=== PATIENT | male | born 1960 | race Caucasian/White ===

== ENCOUNTER → 2020-01-05 | Outpatient (CLI) | payer BC ==
[~2020-01-05] MED LIST: CEPHALEXIN500 M1 PO; LISINOPRIL HCTZ1 TA1 PO; LISINOPRIL10 M1 PO; LISINOPRIL10 MG PO; LISINOPRIL2.5 MG PO; LOPRESSOR25 MG PO; PROTONIX40 MG PO
== END | disposition home or self-care (01) ==
LOC: COVID19 13:37
PROVIDERS: ATTEND Family Medicine
DX: U07.1 COVID-19 (principal)

== ENCOUNTER → 2021-05-26 | Day surgery (SDC) | payer BC ==
[~2021-05-26] VITALS: Ht 177.8 cm; Wt 70.3 kg
[~2021-05-26] MED LIST changes: +LISINOPRIL5 MG PO; +MOBIC15 MG PO; +PROPRANOLOL HCL60 M1 PO
[2021-05-26 07:53] VITALS: BP 163/91
[2021-05-26 08:16] VITALS: BP 141/76
[2021-05-26 08:30] VITALS: BP 135/79
[2021-05-26 08:45] VITALS: BP 134/82
== END | disposition home or self-care (01) ==
LOC: SDC 05-23 10:15
PROVIDERS: ATTEND Surgery
DX: Z12.11 Encounter for screening for malignant neoplasm of colon (principal); K57.30 Diverticulosis of large intestine without perforation or abscess without bleeding; K21.9 Gastro-esophageal reflux disease without esophagitis; I10 Essential (primary) hypertension; M19.90 Unspecified osteoarthritis, unspecified site; Z88.5 Allergy status to narcotic agent; E78.00 Pure hypercholesterolemia, unspecified; Z79.899 Other long term (current) drug therapy

== ENCOUNTER → 2021-11-25 | Outpatient (CLI) | payer BC | LOC: RAD 16:25 | PROVIDERS: ATTEND Family Medicine | DX: M17.0 Bilateral primary osteoarthritis of knee (principal) ==

== ENCOUNTER → 2022-06-27 | Outpatient (CLI) | payer BC | END | disposition home or self-care (01) | LOC: CT 00:16 | PROVIDERS: ATTEND Orthopaedic Surgery | DX: M17.0 Bilateral primary osteoarthritis of knee (principal); Z96.653 Presence of artificial knee joint, bilateral ==

== ENCOUNTER 2022-08-22 00:36 | Inpatient (IN) | payer BC ==
[2022-08-18 13:30] VITALS: BP 175/96
[2022-08-18 14:18] LABS: BASO # 0.1 10*3/uL (0.0-0.1); BASO % 0.8 % (0.0-1.0); EOS # 0.1 10*3/uL (0.0-0.4); EOS % 2.1 % (1.0-4.0); HEMATOCRIT 41.5 % (42.0-52.0); LYMPH # 1.1 10*3/uL (1.3-4.4); LYMPH % 18.2 % (27.0-41.0); MEAN CELL VOLUME 94.7 fl (80.0-94.0); MEAN CORPUSCULAR HGB 33.6 pg (27.0-31.0); MEAN CORPUSCULAR HGB CONC 35.4 g/dl (33.0-37.0); MEAN PLATELET VOLUME 9.6 fl (9.6-12.3); MONO # 0.6 10*3/uL (0.1-1.0); NEUT # 4.2 10*3/uL (2.3-7.9); NEUT % 68.4 % (47.0-73.0); PLATELET COUNT AUTOMATED 180 10*3/uL (130-400); RED BLOOD COUNT 4.38 10*6/uL (4.50-5.90); RED CELL DISTRI WIDTH 11.9 % (0-14.5); WHITE BLOOD COUNT 6.1 10*3/uL (4.8-10.8)
[2022-08-18 14:18] LABS: BILIRUBIN Negative (Negative); BLOOD Negative (Negative); CLARITY Clear (Clear); COLOR Yellow (Yellow); GLUCOSE Negative (Negative); KETONE Trace (Negative); LEUKO ESTERASE Negative (Negative); NITRITE Negative (Negative); PH 5.5 (4.5-8.0); SPECIFIC GRAVITY 1.015 (1.001-1.030)
[2022-08-18 14:28] LABS: BACTERIA TRACE; RBC 0-2 rbc/hpf (0-2); WBC 0-2 wbc/hpf (0-5)
[2022-08-18 14:49] LABS: ALKALINE PHOSPHATASE 76 U/L (46-116); BUN 9 mg/dl (9-23); CHLORIDE 95 mmol/L (98-107); SGPT/ALT 39 U/L (10-49); TOTAL PROTEIN 7.5 gm/dL (6.0-8.0)
[2022-08-22] VITALS (7 sets, daily range): BP systolic 151–170; BP diastolic 75–91
[~2022-08-22] VITALS: Ht 177.8 cm; Wt 70.3 kg
[2022-08-22] MEDS ORDERED: ZESTRIL20 MG PO (11:45)
[2022-08-23] VITALS: BP 122/80
[2022-08-23 07:14] LABS: BASO % 0.1 % (0.0-1.0); EOS % 0.1 % (1.0-4.0); HEMATOCRIT 32.7 % (42.0-52.0); LYMPH # 0.4 10*3/uL (1.3-4.4); LYMPH % 4.4 % (27.0-41.0); MEAN CELL VOLUME 94.2 fl (80.0-94.0); MEAN CORPUSCULAR HGB CONC 36.1 g/dl (33.0-37.0); MEAN PLATELET VOLUME 9.8 fl (9.6-12.3); MONO # 0.9 10*3/uL (0.1-1.0); MONO % 9.3 % (3.0-9.0); NEUT # 8.2 10*3/uL (2.3-7.9); NEUT % 85.7 % (47.0-73.0); PLATELET COUNT AUTOMATED 152 10*3/uL (130-400); RED BLOOD COUNT 3.47 10*6/uL (4.50-5.90); RED CELL DISTRI WIDTH 12.2 % (0-14.5); WHITE BLOOD COUNT 9.5 10*3/uL (4.8-10.8)
[2022-08-23 07:35] LABS: BUN 13 mg/dl (9-23); CHLORIDE 96 mmol/L (98-107); POTASSIUM 4.5 mmol/L (3.4-5.1)
[2022-08-23 08:00] VITALS: BP 165/87
[2022-08-23 08:56] LABS: VITAMIN D, 25-HYDROXY 58.9 ng/mL (30-100)
[2022-08-23 08:57] LABS: FREE T4 1.61 ng/dl (0.89-1.76)
[2022-08-23 12:00] VITALS: BP 140/76
[2022-08-23 16:00] VITALS: BP 128/75
[2022-08-23 20:00] VITALS: BP 138/77
[2022-08-24] VITALS: BP 138/76
[2022-08-24 06:56] LABS: BASO % 0.2 % (0.0-1.0); EOS % 0.5 % (1.0-4.0); LYMPH # 0.6 10*3/uL (1.3-4.4); LYMPH % 10.8 % (27.0-41.0); MEAN CELL VOLUME 96.9 fl (80.0-94.0); MEAN CORPUSCULAR HGB 34.7 pg (27.0-31.0); MEAN CORPUSCULAR HGB CONC 35.8 g/dl (33.0-37.0); MEAN PLATELET VOLUME 10.3 fl (9.6-12.3); MONO # 0.8 10*3/uL (0.1-1.0); MONO % 13.5 % (3.0-9.0); NEUT # 4.4 10*3/uL (2.3-7.9); NEUT % 74.3 % (47.0-73.0); PLATELET COUNT AUTOMATED 131 10*3/uL (130-400); RED CELL DISTRI WIDTH 12.3 % (0-14.5); WHITE BLOOD COUNT 5.9 10*3/uL (4.8-10.8)
[2022-08-24 08:00] VITALS: BP 167/85
[2022-08-24] MEDS ORDERED: PROPRANOLOL HCL60 M1 PO (08:55)
[2022-08-24] MEDS ORDERED: HYDROCODONE-AC1 EAC1 PO (08:55)
[2022-08-24] MEDS ORDERED: ZESTRIL20 MG PO (08:55)
[2022-08-24] MEDS ORDERED: MELOXICAM15 MG PO (08:55)
[2022-08-24] MEDS ORDERED: ASPIRIN ADULT L81 M2 PO (08:55)
[2022-08-24] MEDS ORDERED: COLACE100 MG PO (08:55)
[2022-08-24 12:00] VITALS: BP 153/87
== END 2022-08-24 12:21 | disposition home or self-care (01) | DRG 470 ==
LOC: SDC 00:36 → 5E 11:34 → SDC 13:15 → 5E 08-24 12:21
PROVIDERS: Orthopaedic Surgery; Registered Nurse; ADMIT Internal Medicine; ATTEND Internal Medicine
PROC: 0SRD0JZ Replacement of Left Knee Joint with Synthetic Substitute, Open Approach (ICD-10-PCS; principal; 2022-08-22)
PROC: 3E0T3BZ Introduction of Anesthetic Agent into Peripheral Nerves and Plexi, Percutaneous Approach (ICD-10-PCS; 2022-08-22)
DX: M17.12 Unilateral primary osteoarthritis, left knee (principal); I10 Essential (primary) hypertension; D75.89 Other specified diseases of blood and blood-forming organs; F10.20 Alcohol dependence, uncomplicated; F17.220 Nicotine dependence, chewing tobacco, uncomplicated; Z96.652 Presence of left artificial knee joint; K21.9 Gastro-esophageal reflux disease without esophagitis; Z79.899 Other long term (current) drug therapy; Z71.6 Tobacco abuse counseling

== ENCOUNTER → 2022-09-06 | Outpatient (CLI) | payer BC ==
[~2022-09-06] MED LIST changes: +ASPIRIN ADULT L81 M2 PO; +COLACE100 MG PO; +HYDROCODONE-AC1 EAC1 PO; +MELOXICAM15 MG PO; +ZESTRIL20 MG PO
== END | disposition home or self-care (01) ==
LOC: ORTHO 01:38
PROVIDERS: ATTEND Orthopaedic Surgery
DX: Z47.1 Aftercare following joint replacement surgery (principal)

== ENCOUNTER → 2022-10-04 | Outpatient (CLI) | payer BC | END | disposition home or self-care (01) | LOC: ORTHO 09:35 | PROVIDERS: ATTEND Orthopaedic Surgery | DX: Z47.1 Aftercare following joint replacement surgery (principal); Z96.652 Presence of left artificial knee joint ==

== ENCOUNTER → 2022-11-15 | Outpatient (CLI) | payer BC ==
[~2022-11-15] MED LIST changes: +OXYCODONE HCL5 MG PO; +VITAMIN D350 MCG PO
== END | disposition home or self-care (01) ==
LOC: ORTHO 02:04
PROVIDERS: ATTEND Orthopaedic Surgery
DX: Z47.1 Aftercare following joint replacement surgery (principal); M25.462 Effusion, left knee; Z96.652 Presence of left artificial knee joint

== ENCOUNTER → 2022-12-08 | Outpatient (CLI) | payer BC | END | disposition home or self-care (01) | LOC: ORTHO 01:04 | PROVIDERS: ATTEND Orthopaedic Surgery | DX: Z47.1 Aftercare following joint replacement surgery (principal); Z96.651 Presence of right artificial knee joint ==

== ENCOUNTER → 2023-01-08 | Outpatient (CLI) | payer BC | END | disposition home or self-care (01) | LOC: RAD 13:13 | PROVIDERS: ATTEND Orthopaedic Surgery | DX: Z47.1 Aftercare following joint replacement surgery (principal) ==

== ENCOUNTER → 2023-02-28 | Outpatient (CLI) | payer BC | END | disposition home or self-care (01) | LOC: ORTHO 02:28 | PROVIDERS: ATTEND Orthopaedic Surgery | DX: M25.461 Effusion, right knee (principal); Z47.1 Aftercare following joint replacement surgery; Z96.651 Presence of right artificial knee joint ==

== ENCOUNTER → 2023-05-30 | Outpatient (CLI) | payer BC | END | disposition home or self-care (01) | LOC: ORTHO 03:34 | PROVIDERS: ATTEND Orthopaedic Surgery | DX: M25.461 Effusion, right knee (principal); Z47.1 Aftercare following joint replacement surgery ==

== ENCOUNTER → 2023-11-28 | Outpatient (CLI) | payer OTHER | END | disposition home or self-care (01) | LOC: ORTHO 03:03 | PROVIDERS: ATTEND Orthopaedic Surgery | DX: M25.462 Effusion, left knee (principal); M25.461 Effusion, right knee; M79.89 Other specified soft tissue disorders; Z96.651 Presence of right artificial knee joint; Z96.652 Presence of left artificial knee joint ==

== ENCOUNTER 2024-02-24 17:48 | Emergency (ER) | payer OTHER ==
[~2024-02-24] VITALS: Ht 172.7 cm; Wt 72.6 kg
[2024-02-24] MEDS ORDERED: LISINOPRIL 20 MG TAB PO ONE (18:05)
[2024-02-24] MEDS ORDERED: SODIUM CHLORIDE 0.9% 1,000 ML IV ONE (18:05)
[2024-02-24] MEDS ORDERED: Labetalol Hydrochloride 20 MG/4 ML SYR IV ONE (18:05)
[2024-02-24 18:20] LABS: BASO % 0.5 % (0.0-1.0); EOS # 0.1 10*3/uL (0.0-0.4); EOS % 1.4 % (1.0-4.0); HEMATOCRIT 40.3 % (42.0-52.0); MEAN CELL VOLUME 100.2 fl (80.0-94.0); MEAN CORPUSCULAR HGB 34.8 pg (27.0-31.0); MEAN CORPUSCULAR HGB CONC 34.7 g/dl (33.0-37.0); MONO # 0.6 10*3/uL (0.1-1.0); MONO % 10.1 % (3.0-9.0); NEUT # 4.2 10*3/uL (2.3-7.9); NEUT % 66.7 % (47.0-73.0); PLATELET COUNT AUTOMATED 167 10*3/uL (130-400); RED BLOOD COUNT 4.02 10*6/uL (4.50-5.90); RED CELL DISTRI WIDTH 12.7 % (0-14.5); WHITE BLOOD COUNT 6.3 10*3/uL (4.8-10.8)
[2024-02-24] MEDS ORDERED: LISINOPRIL20 MG PO (18:20)
[2024-02-24] MEDS ORDERED: PROPRANOLOL HCL60 MG PO (18:20)
[2024-02-24 18:46] LABS: BUN 8 mg/dl (9-23); CHLORIDE 99 mmol/L (98-107); POTASSIUM 3.1 mmol/L (3.4-5.1)
[2024-02-24] MEDS ORDERED: POTASSIUM CHLORIDE 20 MEQ TAB PO ONE (18:50)
[2024-02-24] MEDS ORDERED: hydrALAZINE hydrochloride 20 MG/ML VIAL IV ONE (18:50)
[2024-02-24 19:31] VITALS: BP 168/64
== END 2024-02-24 19:30 | disposition home or self-care (01) ==
LOC: ED 17:48
PROVIDERS: Emergency Medicine
DX: I16.0 Hypertensive urgency (principal); K21.9 Gastro-esophageal reflux disease without esophagitis; E78.00 Pure hypercholesterolemia, unspecified; M19.90 Unspecified osteoarthritis, unspecified site; F17.220 Nicotine dependence, chewing tobacco, uncomplicated; F10.20 Alcohol dependence, uncomplicated; Z98.890 Other specified postprocedural states; Z96.653 Presence of artificial knee joint, bilateral

== ENCOUNTER → 2024-11-26 | Outpatient (CLI) | payer OTHER ==
[~2024-11-26] MED LIST changes: +LISINOPRIL20 MG PO; +PROPRANOLOL HCL60 MG PO
== END | disposition home or self-care (01) ==
LOC: ORTHO 01:02
PROVIDERS: ATTEND Orthopaedic Surgery
DX: M18.0 Bilateral primary osteoarthritis of first carpometacarpal joints (principal); M25.462 Effusion, left knee; M25.461 Effusion, right knee; M85.842 Other specified disorders of bone density and structure, left hand; M85.841 Other specified disorders of bone density and structure, right hand; Z96.652 Presence of left artificial knee joint; Z96.651 Presence of right artificial knee joint; M85.88 Other specified disorders of bone density and structure, other site